=== PATIENT | male | born 1950 | race Caucasian/White ===

== ENCOUNTER → 2016-07-19 | Outpatient (REF) | payer OTHER, MEDICAID ==
[2016-07-19 14:40] LABS: PERCENT SATURATION 27.2 % (19.7-37.4)
== END ==
LOC: M LAB REF 13:11
PROVIDERS: ATTEND Nurse Practitioner Family
DX: D64.9 Anemia, unspecified (principal)

== ENCOUNTER → 2017-02-02 | Outpatient (CLI) | payer OTHER, MEDICAID ==
[2017-02-02 11:01] LABS: PERCENT SATURATION 36.1 % (19.7-50.0)
== END ==
LOC: M LAB 08:33
PROVIDERS: ATTEND Internal Medicine Gastroenterology
DX: D64.9 Anemia, unspecified (principal)

== ENCOUNTER → 2018-02-13 | Outpatient (REF) | payer OTHER, MEDICAID ==
[2018-02-13 13:30] LABS: IRON (FE) 124 UG/DL (65-175); PERCENT SATURATION 32.9 % (19.7-50.0); TOTAL IRON BINDING CAPACITY 377 UG/DL (250-450)
[2018-02-13 15:55] LABS: TESTOSTERONE 411 NG/DL (241-827)
== END ==
LOC: M LAB REF 12:57
DX: N52.9 Male erectile dysfunction, unspecified (principal); D50.9 Iron deficiency anemia, unspecified
CPT/HCPCS: 83550

== ENCOUNTER 2018-03-29 09:10 | Day surgery (SDC) | payer OTHER ==
[2018-03-29] MEDS: NS 1,000 ML IV (10:45)
[2018-03-29] MEDS ORDERED: PROPOFOL 200 MG/20 ML VIAL As Ordered ×2 (10:50)
[2018-03-29] MEDS ORDERED: LIDOCAINE 2% INJ 100 MG/5 ML SDV (FOR ANES.) As Ordered (10:50)
== END 2018-03-29 12:08 | disposition home or self-care (01) ==
LOC: M OPP 09:10
DX: Z12.11 Encounter for screening for malignant neoplasm of colon (principal); D12.0 Benign neoplasm of cecum; K64.8 Other hemorrhoids; E11.9 Type 2 diabetes mellitus without complications; R12 Heartburn; R06.83 Snoring; Z87.19 Personal history of other diseases of the digestive system; Z88.0 Allergy status to penicillin; Z98.890 Other specified postprocedural states; Z79.84 Long term (current) use of oral hypoglycemic drugs; Z79.899 Other long term (current) drug therapy; Z91.018 Allergy to other foods
CPT/HCPCS: 45385

== ENCOUNTER → 2018-05-08 | Outpatient (REF) | payer OTHER ==
[~2018-05-08] MED LIST: CHOL1CAP PO; COQ-30CA2 PO; GLUC1CAP10 PO; METF500T13 PO; MULT1TAB10 PO; OMEG1CAP16 PO; POTA99TA PO; RANI150T PO; RED1CAP5 PO; TYLE1TAB5 PO; VITA100067 PO; calcium, mag, zinc PO
== END ==
LOC: M LAB REF 12:35
PROVIDERS: ATTEND Nurse Practitioner Family
DX: N52.9 Male erectile dysfunction, unspecified (principal)

== ENCOUNTER → 2018-09-13 | Outpatient (CLI) | payer MEDICARE ==
[2018-09-13 09:39] LABS: BASO % 0.7 % (0.0-1.0); EOS # 0.2 10^3/uL (0.0-0.50); EOS % 2.8 % (0.0-3.0); HEMATOCRIT 42.4 % (42.0-52.0); HEMOGLOBIN 14.2 g/dl (13.5-17.5); LYMPH # 1.6 10^3/uL (1.5-4.5); LYMPH % 27.4 % (24.0-44.0); MEAN CORPUSCULAR HEMOGLOBIN 30.6 pg (27.0-33.0); MEAN CORPUSCULAR HGB CONC 33.5 g/dl (32.0-36.5); MEAN CORPUSCULAR VOLUME 91.4 fl (80.0-96.0); MONO # 0.4 10^3/uL (0.0-0.8); MONO % 6.6 % (0.0-5.0); NEUTROPHILS # 3.6 10^3/uL (1.8-7.7); PLATELET COUNT, AUTOMATED 211 10^3/uL (150-450); RED BLOOD COUNT 4.64 10^6/uL (4.30-6.10); WHITE BLOOD COUNT 5.8 10^3/uL (4.0-10.0)
[2018-09-13 09:53] LABS: CREATININE, URINE 63.1 MG/DL; MALB URINE SIEMENS 6.7 MG/L; MAU/CREAT RATIO 10.6 MCG/MG (0.0-30.0)
[2018-09-13 09:54] LABS: HEMOGLOBIN A1c 7.4 %
[2018-09-13 10:15] LABS: ALBUMIN 3.7 GM/DL (3.2-5.2); ALT/SGPT 37 U/L (12-78); BILIRUBIN,TOTAL 0.4 MG/DL (0.2-1.0); BLOOD UREA NITROGEN 26 MG/DL (7-18); CALCIUM LEVEL 8.4 MG/DL (8.8-10.2); CARBON DIOXIDE LEVEL 26 MEQ/L (21-32); CHLORIDE LEVEL 107 MEQ/L (98-107); CHOLESTEROL LEVEL 198 MG/DL (<200); CREATININE FOR GFR 0.97 MG/DL (0.70-1.30); FERRITIN 380 NG/ML (26-388); FREE T4 0.98 NG/DL (0.76-1.46); GLOMERULAR FILTRATION RATE > 60.0 (>42); GLUCOSE, FASTING 136 MG/DL (70-100); HDL CHOLESTEROL 38 MG/DL (>40); IRON (FE) 68 UG/DL (65-175); LDL CHOLESTEROL 140.6 MG/DL (<100); NON-HDL-C 160 MG/DL; PERCENT SATURATION 19.2 % (19.7-50.0); POTASSIUM SERUM 4.6 MEQ/L (3.5-5.1); SODIUM LEVEL 141 MEQ/L (136-145); THYROID STIMULATING HORMONE 0.113 uIU/ML (0.358-3.740); TOTAL IRON BINDING CAPACITY 355 UG/DL (250-450); TOTAL PROTEIN 7.4 GM/DL (6.4-8.2); TRIGLYCERIDES LEVEL 97 MG/DL (<150)
== END ==
LOC: M LAB 08:28
PROVIDERS: ATTEND Physician Assistant
DX: E11.9 Type 2 diabetes mellitus without complications (principal); G47.33 Obstructive sleep apnea (adult) (pediatric)

== ENCOUNTER → 2018-09-20 | Outpatient (CLI) | payer MEDICARE | LOC: M PLARAD 12:04 | PROVIDERS: ATTEND Psychiatry & Neurology Neurology | DX: Z53.9 Procedure and treatment not carried out, unspecified reason (principal); G47.30 Sleep apnea, unspecified ==

== ENCOUNTER → 2018-10-29 | Outpatient (CLI) | payer MEDICARE ==
[~2018-10-29] MED LIST changes: +ACET-907 PO; +ASPI81TAEC PO; +ATOR40TA75 PO; +BACT800T5 PO; +BENA25CA4 PO; +CALC600T60 PO; +CHOL50002 PO; +CHRO400T4 PO; +COQ-100C5 PO; +HM P99TA PO; +IBUP1TAB6 PO; +LISI10TA4 PO; +MAGN400C2 PO; +MULTCAP PO; +MUPI2OI TOP; +OMEG100011 PO; +REDCAP13 PO; +SUGAR BALANCE PO; +VITA-158 PO; +VITA400C56 PO
--- NOTE | 2018-10-29 10:34 | REP ---
CT NECK WITH CONTRAST: HISTORY: Right posterior neck mass. CONTRAST: Isovue-370 75 mL. Calcification is present in the right tonsil. This is secondary to previous inflammatory disease. The naso-, and oropharynx are otherwise normal in appearance. The salivary glands are normal in size and density. The thyroid gland is enlarged. The thyroid gland is heterogenous in density. Scattered calcifications are present. The right thyroid lobe measures 5.5 cm in transverse x 4.1 cm AP x 10.6 cm in cephalocaudal dimensions. The left thyroid lobe measures 4.2 cm in tranverse x 4 cm in AP x 9.4 cm cephalocaudal dimensions. There is minimal mass effect on the hypopharynx and trachea with minimal displacement to the left. Small lymph nodes less than 1 cm in size are present in the internal jugular chains, posterior triangles submandibular and submental areas. A lipoma is present in the right posterior subcutaneous tissues. The lipoma extends from the level of the occiput inferior to the C4-5 level. The lipoma measures 7.5 cm in transverse x 3.7 cm in AP x 7.1 cm in cephalocaudal dimensions. Atherosclerotic calcification is present at the carotid bifurcations. Degenerative change is present in the cervical spine. The lung apices are clear. Minimal mucosal thickening is present in the right ethmoid sinus. IMPRESSION: 1. There is enlargement of the thyroid gland most consistent with a goiter. Nuclear medicine study is recommended for further evaluation. 2. There is a lipoma in the right posterior subcutaneous tissues as described above. Electronically Signed by Brayan Blackwell MD 10/29/2018 10:38 A
== END ==
LOC: M RAD 08:33
PROVIDERS: ATTEND Physician Assistant
DX: E04.9 Nontoxic goiter, unspecified (principal); D17.39 Benign lipomatous neoplasm of skin and subcutaneous tissue of other sites; R22.1 Localized swelling, mass and lump, neck

== ENCOUNTER → 2018-10-29 | Outpatient (CLI) | payer MEDICARE ==
[~2018-10-29] MED LIST changes: +ISOVUE-370 76% 100ML VIAL (Q9967) As Ordered ONE
--- NOTE | 2018-10-29 09:41 | REP ---
CT Head without and with contrast HISTORY: Obstructive sleep apnea CONTRAST: Isovue 370 75 ml COMPARISON: None Areas of decreased attenuation are present in the periventricular white matter. This represents small-vessel ischemic disease. There is no intraparenchymal hemorrhage, acute infarct, mass or midline shift. There is no abnormal enhancement. The ventricular system and cortical sulci are dilated consistent with minimal volume loss. There is no extra cerebral collection. The visualized sinuses are clear. Impression: 1. Small vessel ischemic disease. 2. Minimal volume loss. Electronically Signed by Brayan Blackwell MD 10/29/2018 09:32 A
== END ==
LOC: M RAD 08:39
PROVIDERS: ATTEND Psychiatry & Neurology Neurology
DX: I73.9 Peripheral vascular disease, unspecified (principal); G47.33 Obstructive sleep apnea (adult) (pediatric); E04.9 Nontoxic goiter, unspecified; D17.39 Benign lipomatous neoplasm of skin and subcutaneous tissue of other sites; R22.1 Localized swelling, mass and lump, neck
CPT/HCPCS: 70470; 70491; Q9967

== ENCOUNTER → 2018-11-11 | Outpatient (CLI) | payer MEDICARE ==
[~2018-11-11] MED LIST changes: -ISOVUE-370 76% 100ML VIAL (Q9967) As Ordered ONE
== END ==
LOC: M RAD 08:58
PROVIDERS: ATTEND Physician Assistant
DX: E04.0 Nontoxic diffuse goiter (principal); Z53.9 Procedure and treatment not carried out, unspecified reason

== ENCOUNTER 2018-12-17 11:16 | Outpatient (RCR) | payer MEDICARE ==
--- NOTE | 2018-11-29 15:14 | NUR ---
Pt presents w/ mild anomia in conversational speech, demonstrating circumlocution and affecting verbal fluency. Mild concomitant apraxia also suspected; will continue to assess motor-speech planning. Recommend language therapy 1-2x/week for word-finding strategies and ongoing assessment. Addendum: 11/29/18 at 1518 by TO [facility] Amended: Links added.
== END 2018-12-18 ==
LOC: M ST 11:16
PROVIDERS: ATTEND Physician Assistant
DX: Z51.89 Encounter for other specified aftercare (principal); G45.9 Transient cerebral ischemic attack, unspecified; R47.01 Aphasia

== ENCOUNTER → 2019-01-03 | Outpatient (CLI) | payer MEDICARE ==
[2019-01-03 09:35] LABS: BASO % 0.5 % (0.0-1.0); EOS # 0.1 10^3/uL (0.0-0.50); EOS % 1.9 % (0.0-3.0); HEMOGLOBIN 14.6 g/dl (13.5-17.5); LYMPH # 1.6 10^3/uL (1.5-4.5); LYMPH % 26.1 % (24.0-44.0); MEAN CORPUSCULAR HEMOGLOBIN 31.4 pg (27.0-33.0); MEAN CORPUSCULAR VOLUME 92.5 fl (80.0-96.0); MONO # 0.5 10^3/uL (0.0-0.8); MONO % 7.6 % (0.0-5.0); NEUTROPHILS % 63.6 % (36.0-66.0); PLATELET COUNT, AUTOMATED 286 10^3/uL (150-450); RED BLOOD COUNT 4.65 10^6/uL (4.30-6.10); WHITE BLOOD COUNT 6.2 10^3/uL (4.0-10.0)
[2019-01-03 10:02] LABS: ALBUMIN 3.4 GM/DL (3.2-5.2); ALT/SGPT 26 U/L (12-78); BILIRUBIN,TOTAL 0.5 MG/DL (0.2-1.0); BLOOD UREA NITROGEN 18 MG/DL (7-18); CALCIUM LEVEL 9.1 MG/DL (8.8-10.2); CARBON DIOXIDE LEVEL 27 MEQ/L (21-32); CHLORIDE LEVEL 105 MEQ/L (98-107); CHOLESTEROL LEVEL 213 MG/DL (<200); CHOLESTEROL RISK RATIO 4.531 (<5); CREATININE FOR GFR 1.05 MG/DL (0.70-1.30); FERRITIN 429 NG/ML (26-388); GLOMERULAR FILTRATION RATE > 60.0 (>42); GLUCOSE, FASTING 145 MG/DL (70-100); HDL CHOLESTEROL 47 MG/DL (>40); IRON (FE) 69 UG/DL (65-175); LDL CHOLESTEROL 152 MG/DL (<100); NON-HDL-C 166 MG/DL; POTASSIUM SERUM 4.4 MEQ/L (3.5-5.1); SODIUM LEVEL 140 MEQ/L (136-145); TOTAL IRON BINDING CAPACITY 300 UG/DL (250-450); TOTAL PROTEIN 7.2 GM/DL (6.4-8.2); TRIGLYCERIDES LEVEL 72 MG/DL (<150)
[2019-01-04 14:36] LABS: TESTOSTERONE FREE (DIRECT) 6.8 pg/mL (6.6-18.1)
== END ==
LOC: M LAB 09:02
PROVIDERS: ATTEND Physician Assistant
DX: E11.9 Type 2 diabetes mellitus without complications (principal)
CPT/HCPCS: 80053; 80061; 82728; 83550; 84402; 84403; 85025; G0103

== ENCOUNTER → 2019-01-07 | Outpatient (REF) | payer MEDICARE | LOC: M LAB REF 19:11 | PROVIDERS: ATTEND Internal Medicine Endocrinology, Diabetes & Metabolism | DX: E04.2 Nontoxic multinodular goiter (principal) ==

== ENCOUNTER 2019-01-09 17:32 | Emergency (ER) | payer MEDICARE ==
[~2019-01-09] VITALS: Ht 190.5 cm; Wt 153.2 kg
[2019-01-09 18:11] LABS: BASO % 0.4 % (0.0-1.0); EOS # 0.1 10^3/uL (0.0-0.50); EOS % 1.3 % (0.0-3.0); HEMATOCRIT 46.2 % (42.0-52.0); HEMOGLOBIN 15.1 g/dl (13.5-17.5); LYMPH # 1.6 10^3/uL (1.5-4.5); LYMPH % 16.6 % (24.0-44.0); MEAN CORPUSCULAR HEMOGLOBIN 30.1 pg (27.0-33.0); MEAN CORPUSCULAR HGB CONC 32.7 g/dl (32.0-36.5); MONO # 0.8 10^3/uL (0.0-0.8); NEUTROPHILS # 6.9 10^3/uL (1.8-7.7); NEUTROPHILS % 73.1 % (36.0-66.0); PLATELET COUNT, AUTOMATED 324 10^3/uL (150-450); RED BLOOD COUNT 5.02 10^6/uL (4.30-6.10); WHITE BLOOD COUNT 9.4 10^3/uL (4.0-10.0)
--- NOTE | 2019-01-09 18:42 | REP ---
HISTORY: Chest pain. COMPARISON: 07/19/2016 The technique utilized in obtaining the radiograph has magnified the cardiac silhouette and accentuated the interstitial markings. The superior mediastinal structures are midline. The cardiac silhouette is unremarkable in size, shape, and position. The diaphragmatic surfaces of the lungs are regular, and the costophrenic angles are clear. The pulmonary vela are clear. The imaged osseous structures are intact. IMPRESSION: There is no acute cardiopulmonary disease. Electronically Signed by Nick Alfonso DO 01/09/2019 06:45 P
[2019-01-09 18:48] LABS: BLOOD UREA NITROGEN 15 MG/DL (7-18); CALCIUM LEVEL 9.7 MG/DL (8.8-10.2); CARBON DIOXIDE LEVEL 26 MEQ/L (21-32); CHLORIDE LEVEL 103 MEQ/L (98-107); CK-MB VALUE MASS 2.2 NG/ML (<3.6); CPK CREATINE PHOSPHOKINASE 150 U/L (39-308); CREATININE FOR GFR 1.05 MG/DL (0.70-1.30); GLOMERULAR FILTRATION RATE > 60.0 (>42); GLUCOSE, FASTING 183 MG/DL (70-100); MB/CK RELATIVE INDEX 1.47 (< OR =4); POTASSIUM SERUM 4.2 MEQ/L (3.5-5.1); SODIUM LEVEL 137 MEQ/L (136-145); TROPONIN I < 0.02 NG/ML (< 0.10)
[2019-01-09 20:28] LABS: FREE THYROXINE INDEX 3.3 % (1.4-3.8); T UPTAKE 36 % (33-40); THYROID STIMULATING HORMONE 0.127 uIU/ML (0.358-3.740); THYROXINE (T4) 9.2 UG/DL (4.5-12.0)
[2019-01-09] MEDS ORDERED: GI COCKTAIL 50ML BTL(HYOSCYAMINE/MAALOX/LIDOCAINE VISCOUS)(1:3:1) PO ONE (21:30)
[2019-01-09] MEDS ORDERED: ISOVUE-370 76% 100ML VIAL (Q9967) As Ordered ONE (22:42)
--- NOTE | 2019-01-09 23:56 | REPVR ---
EXAM: CT Angiography Chest With Contrast EXAM DATE/TIME: 01/09/2019 10:35 PM CLINICAL HISTORY: 68 years old, male; Chest pain; Type not specified; Additional info: Cp TECHNIQUE: Imaging protocol: Axial computed tomographic angiography images of the chest with intravenous contrast using CT angiography protocol. 3D rendering: MIP reconstructed images were created and reviewed. Radiation optimization: All CT scans at this facility use at least one of these dose optimization techniques: automated exposure control; mA and/or kV adjustment per patient size (includes targeted exams where dose is matched to clinical indication); or iterative reconstruction. Contrast material: ISO; Contrast volume: 75 ml; Contrast route: AC; COMPARISON: CR PORTABLE CHEST X-RAY 01/09/2019 5:53 PM FINDINGS: Pulmonary arteries: The main pulmonary artery measures 29 mm. No central pulmonary embolism is identified. Aorta: The ascending thoracic aorta measures 36 mm. No gross or obvious aortic dissection is identified distal to the mid arch. Artifact and image degradation precludes detailed evaluation of the ascending thoracic aorta. Thyroid: Bilateral thyroid calcifications. Lungs: Slight interstitial prominence with minimal bilateral lower lobe dependent atelectasis. Pleural space: Unremarkable. No pneumothorax. No pleural effusion. Heart: Unremarkable. No cardiomegaly. No pericardial effusion. Lymph nodes: Unremarkable. No enlarged lymph nodes. Bones/joints: Unremarkable. No acute fracture. Soft tissues: Unremarkable. IMPRESSION: Negative CTA chest. No central pulmonary embolism is identified. Electronically signed by: Philip Weber On 01/09/2019 23:56:43 PM
[2019-01-10 00:03] LABS: ALBUMIN 3.6 GM/DL (3.2-5.2); ALT/SGPT 27 U/L (12-78); BILIRUBIN,DIRECT 0.2 MG/DL (0.0-0.2); BILIRUBIN,TOTAL 0.3 MG/DL (0.2-1.0); LIPASE 990 U/L (73-393); TOTAL PROTEIN 7.6 GM/DL (6.4-8.2)
[2019-01-10] MEDS ORDERED: SUCRALFATE SUSP 1GM/10ML UD PO ONE (00:15)
[2019-01-10] MEDS ORDERED: NS 500 ML IV ONE (00:15)
[2019-01-10] MEDS ORDERED: PANTOPRAZOLE 40MG INJ (PROTONIX) (C9113) IV ONE (00:15)
[2019-01-10 02:02] LABS: CK-MB VALUE MASS 1.9 NG/ML (<3.6); CPK CREATINE PHOSPHOKINASE 146 U/L (39-308); TROPONIN I < 0.02 NG/ML (< 0.10)
--- NOTE | 2019-01-10 02:23 | REPVR ---
EXAM: US Abdomen Limited, Right Upper Quadrant EXAM DATE/TIME: 01/10/2019 1:47 AM CLINICAL HISTORY: 68 years old, male; Abdominal pain; Epigastric; Additional info: Biliary eval/lipase elevated TECHNIQUE: Imaging protocol: Real-time ultrasound of the abdomen with image documentation. Examination was focused on the right upper quadrant. COMPARISON: No relevant prior studies available. FINDINGS: Liver: The liver is attenuating and mildly echogenic. Gallbladder: No gallbladder wall thickening measuring 2 mm and no stones. There is a negative sono Gold's sign. Common bile duct: The CBD measures 5 mm. Pancreas: The pancreas is not diagnostically evaluated due to gas shadowing. Right kidney: The right kidney is normal measuring 14.6 cm with no hydronephrosis. IMPRESSION: 1. Fatty infiltration of the liver. 2. Otherwise negative right upper quadrant sonogram. No gallstones. Electronically signed by: Philip Weber On 01/10/2019 02:22:33 AM
[2019-01-10 03:30] VITALS: BP 135/66
--- NOTE | 2019-01-10 05:30 | ECGEPIP ---
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
--- NOTE | 2019-01-10 13:10 | ECGEPIP ---
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
== END 2019-01-10 03:55 | disposition home or self-care (01) ==
LOC: M ED 17:32
DX: I48.91 Unspecified atrial fibrillation (principal); R79.89 Other specified abnormal findings of blood chemistry; E11.9 Type 2 diabetes mellitus without complications; I10 Essential (primary) hypertension; K21.9 Gastro-esophageal reflux disease without esophagitis; Z88.0 Allergy status to penicillin; Z91.018 Allergy to other foods
CPT/HCPCS: 36415; 71045; 71275; 76705; 80048; 80076; 82550; 82553; 83690; 84436; 84443; 84479; 84484; 85025; 93005; 93041; 94760; 96361; 96374; 99285; C9113; Q9967

== ENCOUNTER → 2019-01-13 | Outpatient (CLI) | payer MEDICARE ==
[2019-01-13 07:40] LABS: ALBUMIN 3.5 GM/DL (3.2-5.2); BILIRUBIN,DIRECT 0.1 MG/DL (0.0-0.2); BILIRUBIN,TOTAL 0.4 MG/DL (0.2-1.0); CHOLESTEROL RISK RATIO 5.714 (<5); TOTAL PROTEIN 7.5 GM/DL (6.4-8.2)
== END ==
LOC: M LAB 06:39
DX: E11.9 Type 2 diabetes mellitus without complications (principal)

== ENCOUNTER → 2019-01-15 | Outpatient (CLI) | payer MEDICARE | LOC: M LAB 15:28 | PROVIDERS: ATTEND Physician Assistant | DX: E11.9 Type 2 diabetes mellitus without complications (principal) ==

== ENCOUNTER → 2019-04-02 | Outpatient (CLI) | payer MEDICARE ==
[2019-04-02 18:34] LABS: BASO % 0.4 % (0.0-1.0); EOS # 0.1 10^3/uL (0.0-0.5); EOS % 1.4 % (0.0-3.0); HEMATOCRIT 47.2 % (42.0-52.0); HEMOGLOBIN 15.6 g/dl (13.5-17.5); LYMPH % 27.8 % (24.0-44.0); MEAN CORPUSCULAR HEMOGLOBIN 29.9 pg (27.0-33.0); MEAN CORPUSCULAR HGB CONC 33.1 g/dl (32.0-36.5); MEAN CORPUSCULAR VOLUME 90.6 fl (80.0-96.0); MONO # 0.5 10^3/uL (0.0-0.8); NEUTROPHILS # 4.5 10^3/uL (1.5-8.5); NEUTROPHILS % 63.3 % (36.0-66.0); PLATELET COUNT, AUTOMATED 248 10^3/uL (150-450); RED BLOOD COUNT 5.21 10^6/uL (4.30-6.10); WHITE BLOOD COUNT 7.1 10^3/uL (4.0-10.0)
[2019-04-02 18:57] LABS: HEMOGLOBIN A1c 6.6 %
[2019-04-02 19:06] LABS: ALT/SGPT 42 U/L (12-78); BILIRUBIN,TOTAL 0.5 MG/DL (0.2-1.0); BLOOD UREA NITROGEN 14 MG/DL (7-18); CALCIUM LEVEL 9.3 MG/DL (8.8-10.2); CARBON DIOXIDE LEVEL 25 MEQ/L (21-32); CHLORIDE LEVEL 104 MEQ/L (98-107); CREATININE FOR GFR 0.96 MG/DL (0.70-1.30); FERRITIN 387 NG/ML (26-388); FREE T4 0.98 NG/DL (0.76-1.46); GLOMERULAR FILTRATION RATE > 60.0 (>42); GLUCOSE, FASTING 103 MG/DL (70-100); IRON (FE) 66 UG/DL (65-175); PERCENT SATURATION 17.7 % (19.7-50.0); POTASSIUM SERUM 4.4 MEQ/L (3.5-5.1); SODIUM LEVEL 139 MEQ/L (136-145); THYROID STIMULATING HORMONE 0.138 uIU/ML (0.358-3.740); TOTAL IRON BINDING CAPACITY 373 UG/DL (250-450); TOTAL PROTEIN 7.7 GM/DL (6.4-8.2)
[2019-04-02 19:08] LABS: CREATININE, URINE 74.4 MG/DL; MALB URINE SIEMENS 8.4 MG/L; MAU/CREAT RATIO 11.2 MCG/MG (0.0-30.0)
[2019-04-02 19:10] LABS: VITAMIN B12 LEVEL 952 PG/ML (247-911)
== END ==
LOC: M LAB 17:07
PROVIDERS: ATTEND Physician Assistant
DX: E11.9 Type 2 diabetes mellitus without complications (principal)

== ENCOUNTER → 2019-04-07 | Outpatient (CLI) | payer MEDICARE ==
[2019-04-07 15:11] LABS: CHOLESTEROL RISK RATIO 3.051 (<5)
== END ==
LOC: M LAB 13:52
PROVIDERS: ATTEND Physician Assistant
DX: Z13.220 Encounter for screening for lipoid disorders (principal); R35.0 Frequency of micturition; E78.00 Pure hypercholesterolemia, unspecified; Z12.5 Encounter for screening for malignant neoplasm of prostate
CPT/HCPCS: 80061; G0103

== ENCOUNTER → 2019-07-04 | Outpatient (CLI) | payer MEDICARE | LOC: M LAB 15:00 | PROVIDERS: ATTEND Student in an Organized Health Care Education/Training Program | DX: E07.9 Disorder of thyroid, unspecified (principal) ==

== ENCOUNTER → 2019-07-04 | Outpatient (CLI) | payer MEDICARE ==
[2019-07-04 15:54] LABS: BASO % 0.5 % (0.0-1.0); EOS # 0.2 10^3/uL (0.0-0.5); EOS % 2.4 % (0.0-3.0); HEMATOCRIT 49.6 % (42.0-52.0); HEMOGLOBIN 16.2 g/dl (13.5-17.5); LYMPH # 1.7 10^3/uL (1.5-5.0); LYMPH % 28.2 % (24.0-44.0); MEAN CORPUSCULAR HEMOGLOBIN 29.7 pg (27.0-33.0); MEAN CORPUSCULAR HGB CONC 32.7 g/dl (32.0-36.5); MONO # 0.5 10^3/uL (0.0-0.8); MONO % 8.5 % (0.0-5.0); NEUTROPHILS # 3.7 10^3/uL (1.5-8.5); NEUTROPHILS % 59.9 % (36.0-66.0); PLATELET COUNT, AUTOMATED 243 10^3/uL (150-450); RED BLOOD COUNT 5.45 10^6/uL (4.30-6.10); WHITE BLOOD COUNT 6.1 10^3/uL (4.0-10.0)
[2019-07-04 16:20] LABS: ALBUMIN 4.2 GM/DL (3.2-5.2); ALT/SGPT 46 U/L (12-78); BILIRUBIN,TOTAL 0.7 MG/DL (0.2-1.0); BLOOD UREA NITROGEN 15 MG/DL (7-18); CALCIUM LEVEL 9.5 MG/DL (8.8-10.2); CARBON DIOXIDE LEVEL 29 MEQ/L (21-32); CHLORIDE LEVEL 103 MEQ/L (98-107); CHOLESTEROL LEVEL 132 MG/DL (<200); CHOLESTEROL RISK RATIO 3.384 (<5); CREATININE FOR GFR 0.94 MG/DL (0.70-1.30); FERRITIN 381 NG/ML (26-388); FREE T4 1.37 NG/DL (0.76-1.46); GLOMERULAR FILTRATION RATE > 60.0 (>42); GLUCOSE, FASTING 93 MG/DL (70-100); HDL CHOLESTEROL 39 MG/DL (>40); IRON (FE) 84 UG/DL (65-175); LDL CHOLESTEROL 70 MG/DL (<100); NON-HDL-C 93 MG/DL; POTASSIUM SERUM 4.6 MEQ/L (3.5-5.1); SODIUM LEVEL 138 MEQ/L (136-145); THYROID STIMULATING HORMONE 0.057 uIU/ML (0.358-3.740); TOTAL PROTEIN 7.7 GM/DL (6.4-8.2); TRIGLYCERIDES LEVEL 113 MG/DL (<150)
[2019-07-04 16:22] LABS: FOLATE > 24.0 NG/ML; VITAMIN B12 LEVEL 1325 PG/ML
[2019-07-04 16:24] LABS: CREATININE, URINE 26.8 MG/DL; MALB URINE SIEMENS < 5.0 MG/L; MAU/CREAT RATIO 18.6 MCG/MG (0.0-30.0)
[2019-07-08 00:06] LABS: PSA TOTAL 2.2 ng/mL (0.0-4.0); TESTOSTERONE FREE (DIRECT) 6.3 pg/mL (6.6-18.1)
== END ==
LOC: M LAB 14:57
PROVIDERS: ATTEND Physician Assistant
DX: E04.9 Nontoxic goiter, unspecified (principal); E11.9 Type 2 diabetes mellitus without complications; G47.33 Obstructive sleep apnea (adult) (pediatric); E78.00 Pure hypercholesterolemia, unspecified; Z79.01 Long term (current) use of anticoagulants; Z79.899 Other long term (current) drug therapy

== ENCOUNTER → 2019-08-19 | Outpatient (CLI) | payer MEDICARE | LOC: M LAB 09:56 | PROVIDERS: ATTEND Registered Nurse | DX: E89.0 Postprocedural hypothyroidism (principal) ==

== ENCOUNTER → 2019-09-22 | Outpatient (CLI) | payer MEDICARE ==
[2019-09-22 15:12] LABS: BASO % 0.7 % (0.0-1.0); EOS # 0.2 10^3/uL (0.0-0.5); EOS % 2.8 % (0.0-3.0); HEMATOCRIT 48.6 % (42.0-52.0); HEMOGLOBIN 15.8 g/dl (13.5-17.5); LYMPH # 1.8 10^3/uL (1.5-5.0); LYMPH % 30.2 % (24.0-44.0); MEAN CORPUSCULAR HEMOGLOBIN 30.4 pg (27.0-33.0); MEAN CORPUSCULAR HGB CONC 32.5 g/dl (32.0-36.5); MEAN CORPUSCULAR VOLUME 93.6 fl (80.0-96.0); MONO # 0.5 10^3/uL (0.0-0.8); MONO % 7.9 % (0.0-5.0); NEUTROPHILS # 3.5 10^3/uL (1.5-8.5); NEUTROPHILS % 58.1 % (36.0-66.0); PLATELET COUNT, AUTOMATED 226 10^3/uL (150-450); RED BLOOD COUNT 5.19 10^6/uL (4.30-6.10); WHITE BLOOD COUNT 6.1 10^3/uL (4.0-10.0)
[2019-09-22 15:30] LABS: ERYTHROCYTE SEDIMENTATION RATE 5 mm/hr (0-20)
[2019-09-22 15:37] LABS: ALBUMIN 3.9 GM/DL (3.2-5.2); ALT/SGPT 45 U/L (12-78); BILIRUBIN,TOTAL 0.4 MG/DL (0.2-1.0); BLOOD UREA NITROGEN 22 MG/DL (7-18); C REACTIVE PROTEIN QUANTITATIV < 0.30 MG/DL (0.00-0.30); CALCIUM LEVEL 9.5 MG/DL (8.8-10.2); CARBON DIOXIDE LEVEL 29 MEQ/L (21-32); CHLORIDE LEVEL 106 MEQ/L (98-107); GLOMERULAR FILTRATION RATE > 60.0 (>42); GLUCOSE, FASTING 112 MG/DL (70-100); POTASSIUM SERUM 4.6 MEQ/L (3.5-5.1); SODIUM LEVEL 141 MEQ/L (136-145); TOTAL PROTEIN 7.2 GM/DL (6.4-8.2)
== END ==
LOC: M LAB 14:35
PROVIDERS: ATTEND Family Medicine
DX: R21 Rash and other nonspecific skin eruption (principal)

== ENCOUNTER → 2019-11-03 | Outpatient (CLI) | payer MEDICARE ==
[2019-11-03 19:01] LABS: BASO # 0.1 10^3/uL (0.0-0.2); BASO % 0.7 % (0.0-1.0); EOS # 0.2 10^3/uL (0.0-0.5); EOS % 2.3 % (0.0-3.0); HEMATOCRIT 48.9 % (42.0-52.0); HEMOGLOBIN 16.2 g/dl (13.5-17.5); LYMPH # 1.7 10^3/uL (1.5-5.0); MEAN CORPUSCULAR HEMOGLOBIN 31.1 pg (27.0-33.0); MEAN CORPUSCULAR HGB CONC 33.1 g/dl (32.0-36.5); MEAN CORPUSCULAR VOLUME 93.9 fl (80.0-96.0); MONO # 0.7 10^3/uL (0.0-0.8); MONO % 10.1 % (0.0-5.0); NEUTROPHILS # 4.2 10^3/uL (1.5-8.5); NEUTROPHILS % 61.5 % (36.0-66.0); PLATELET COUNT, AUTOMATED 280 10^3/uL (150-450); RED BLOOD COUNT 5.21 10^6/uL (4.30-6.10); WHITE BLOOD COUNT 6.8 10^3/uL (4.0-10.0)
[2019-11-03 19:08] LABS: HEMOGLOBIN A1c 6.8 %
[2019-11-03 19:33] LABS: ALBUMIN 3.7 GM/DL (3.2-5.2); ALT/SGPT 42 U/L (12-78); BILIRUBIN,TOTAL 0.5 MG/DL (0.2-1.0); BLOOD UREA NITROGEN 24 MG/DL (7-18); CALCIUM LEVEL 9.5 MG/DL (8.8-10.2); CARBON DIOXIDE LEVEL 26 MEQ/L (21-32); CHLORIDE LEVEL 105 MEQ/L (98-107); CHOLESTEROL LEVEL 230 MG/DL (<200); CHOLESTEROL RISK RATIO 5.476 (<5); CREATININE FOR GFR 0.91 MG/DL (0.70-1.30); FERRITIN 329 NG/ML (26-388); FREE T4 1.13 NG/DL (0.76-1.46); GLOMERULAR FILTRATION RATE > 60.0 (>42); GLUCOSE, FASTING 92 MG/DL (70-100); HDL CHOLESTEROL 42 MG/DL (>40); IRON (FE) 65 UG/DL (65-175); LDL CHOLESTEROL 162 MG/DL (<100); NON-HDL-C 188 MG/DL; PERCENT SATURATION 16.9 % (19.7-50.0); POTASSIUM SERUM 4.7 MEQ/L (3.5-5.1); SODIUM LEVEL 138 MEQ/L (136-145); TOTAL IRON BINDING CAPACITY 384 UG/DL (250-450); TOTAL PROTEIN 7.5 GM/DL (6.4-8.2); TRIGLYCERIDES LEVEL 130 MG/DL (<150)
== END ==
LOC: M LAB 16:58
PROVIDERS: ATTEND Family Medicine
DX: E11.9 Type 2 diabetes mellitus without complications (principal); E89.0 Postprocedural hypothyroidism; D64.9 Anemia, unspecified

== ENCOUNTER → 2019-12-01 | Outpatient (CLI) | payer MEDICARE ==
[2019-12-01 07:11] LABS: INR 0.97; PROTHROMBIN TIME 12.6 SECONDS (11.8-14.0)
== END ==
LOC: M LAB 06:22
PROVIDERS: ATTEND Internal Medicine Cardiovascular Disease
DX: Z79.01 Long term (current) use of anticoagulants (principal)

== ENCOUNTER → 2019-12-08 | Outpatient (CLI) | payer MEDICARE ==
[2019-12-08 08:12] LABS: INR 1.05; PROTHROMBIN TIME 13.4 SECONDS (11.8-14.0)
== END ==
LOC: M LAB 07:18
PROVIDERS: ATTEND Physician Assistant
DX: Z79.01 Long term (current) use of anticoagulants (principal)

== ENCOUNTER → 2019-12-22 | Outpatient (CLI) | payer MEDICARE ==
[2020-01-25 02:56] LABS: PROTHROMBIN TIME 13.4 SECONDS (11.8-14.0)
== END ==
LOC: M LAB 12:05
PROVIDERS: ATTEND Physician Assistant
DX: Z79.01 Long term (current) use of anticoagulants (principal)

== ENCOUNTER → 2019-12-31 | Outpatient (CLI) | payer MEDICARE ==
[2020-01-31 10:36] LABS: INR 1.13; PROTHROMBIN TIME 14.8 SECONDS (11.8-14.0)
== END ==
LOC: M LAB 08:16
PROVIDERS: ATTEND Physician Assistant
DX: Z51.81 Encounter for therapeutic drug level monitoring (principal); Z79.01 Long term (current) use of anticoagulants

== ENCOUNTER → 2020-06-24 | Outpatient (REF) | payer MEDICARE, MEDICAID ==
[~2020-06-24] MED LIST changes: +LISI10TA22 PO; -LISI10TA4 PO
[2020-06-24 13:37] LABS: PERCENT SATURATION 25.5 % (19.7-50.0)
[2020-06-24 13:44] LABS: CORTISOL AM 14.3 UG/DL (4.3-22.4)
== END ==
LOC: M LAB REF 12:40
PROVIDERS: ATTEND Internal Medicine
DX: E11.65 Type 2 diabetes mellitus with hyperglycemia (principal); D64.9 Anemia, unspecified; K76.0 Fatty (change of) liver, not elsewhere classified

== ENCOUNTER → 2021-06-12 | Outpatient (REF) | payer MEDICARE, MEDICAID ==
[~2021-06-12] MED LIST changes: +ASPI-569 PO; -ASPI81TAEC PO; -HM P99TA PO; +POTA99TA14 PO
== END ==
LOC: M LAB REF 08:37
PROVIDERS: ATTEND Internal Medicine Cardiovascular Disease
DX: I10 Essential (primary) hypertension (principal)

== ENCOUNTER → 2021-06-23 | Outpatient (CLI) | payer MEDICARE | LOC: M LAB 08:38 | PROVIDERS: ATTEND Internal Medicine Cardiovascular Disease | DX: I10 Essential (primary) hypertension (principal) ==

== ENCOUNTER → 2025-05-01 | Outpatient (CLI) | payer BC, MEDICARE ==
[~2025-05-01] MED LIST changes: -IBUP1TAB6 PO; +SFHIBU600 PO
== END ==
LOC: M CARPUL 09:58
PROVIDERS: ATTEND Physician Assistant
DX: I77.810 Thoracic aortic ectasia (principal)